=== PATIENT | male | born 1995 | race Caucasian/White ===

== ENCOUNTER 2016-09-05 09:54 | Emergency (ER) ==
[2016-09-05 10:23] LABS: URINE CULTURE PL NEEDED? NO; URINE SOURCE VOIDED
[2016-09-05 10:33] LABS: BILIRUBIN URINE NEGATIVE (NEGATIVE); BLOOD URINE NEGATIVE (NEGATIVE); CLARITY CLEAR (CLEAR); COLOR YELLOW; GLUCOSE URINE NEGATIVE (NEGATIVE); LEUKOCYTES URINE NEGATIVE (NEGATIVE); NITRITE URINE NEGATIVE (NEGATIVE); PROTEIN URINE NEGATIVE (NEGATIVE); UROBILINOGEN URINE NORMAL
[2016-09-05 10:39] LABS: MANUAL DIFF NEEDED? NO
[2016-09-05 10:40] LABS: URINE EPITHELIAL CELLS <10 /HPF (<10); URINE WBC <10 /HPF (<10)
[2016-09-05 10:49] LABS: BASO% 0.2 % (0.0-0.8); EOS# 0.05 X1000 (0.0-0.7); EOS% 0.8 % (0.0-10.0); HEMATOCRIT 46.6 % (42.0-52.0); HEMOGLOBIN 15.9 g/dL (14.0-18.0); IMM GRAN# 0.01 X1000 (0.0-0.04); IMM GRAN% 0.2 % (0.0-0.5); LYMPH# 1.52 X1000 (1.2-3.4); MCH 32.1 PG (27-31); MCHC 34.1 g/dL (33-37); MCV 94.1 FL (81-99); MONO% 7.9 % (1.7-9.3); MPV 10.3 FL (7.4-10.4); NEUT% 66.9 % (42.2-75.2); PLT 222 X1000 (130-400); RBC 4.95 XMIL (4.7-6.1)
--- NOTE | 2016-09-05 10:49 | PROVIDER DOCUMENTATION ---
HPI-Abdominal Pain/GI Problem <Reyes Paul - Last Filed: 09/05/16 11:31> - General Source: patient - History of Present Illness-ABD Abdominal Pain Onset Location: reports: [facility] Pain Radiation: reports: no radiation Quality of Pain: reports: aching Severity in ED: reports: mild Onset/Duration: reports: last night Timing: reports: still present Activities at Onset: reports: none Exposure to sick contacts?: No Modifying Factors: improves with: nothing Associated Symptoms: reports: denies symptoms Last BM: 24 hours ago Dark Stools Present?: reports: none noticed Rectal Bleeding: reports: none Rectal Pain: reports: none Emesis Description: reports: none Bruising or Bleeding Gums?: No Similar Symptoms Previously?: No Recently seen or treated by another doctor?: No <Feliciano Andre - Last Filed: 09/05/16 11:37> - General Chief Complaint: Abdominal Pain Stated Complaint: EPIGASTRIC PAIN Time Seen by Provider: 09/05/16 10:24 Allergies/Adverse Reactions: Patient Allergies Allergy/AdvReac Type Severity Reaction Status Date / Time No Known Allergies Allergy Verified 09/05/16 10:06 Home Medications: Home Medication List Medication Instructions Recorded Confirmed Last Taken Type Polyethylene Glycol 3350 [Miralax] 17 gm PO DAILY PRN PRN #[id number] 09/05/16 Unknown Rx [email or web address] Review of Systems - Adult - REVIEW OF SYSTEMS - ADULT Constitutional: denies: chills, fever, night sweats Cardiovascular: denies: chest pain, irregular heart rate, palpitations Respiratory: denies: cough, shortness of breath, wheezing Gastrointestinal: reports: abdominal pain. denies: constipation, nausea, vomiting Genitourinary: denies: dysuria, flank pain, frequent UTI's Musculoskeletal: denies: back pain, muscle aches, neck pain Integumentary: denies: hives, itching, rash All Other Systems: Reviewed and Negative <Feliciano Andre - Last Filed: 09/05/16 11:37> Past History - Adult - PAST MEDICAL HISTORY-ADULT Review of Records: reports: Old Records Reviewed, Nursing Assessment Review - PRIOR SURGERIES/PROCEDURES Surgical/Procedure History: reports: none - PRIOR HOSPITALIZATIONS Prior Hospitalizations: reports: none - IMMUNIZATION STATUS Childhood Immunizations: See Nurse Assessment Flu Vaccine: See Nurse Assessment - FAMILY HISTORY Family History: reviewed, not pertinent - SOCIAL HISTORY Smoking: denies Substance Use: none/never Living Situation: family <Feliciano Andre - Last Filed: 09/05/16 11:37> Physical Exam-General - PHYSICAL EXAM-ADULT Initial Vital Signs Reviewed: Yes - CONSTITUTIONAL General Appearance: appears well, alert, no apparent distress - RESPIRATORY Respiratory: chest non-tender, lungs clear, normal breath sounds, no pleuratic chest pain, no respiratory distress, no accessory muscle use - CARDIOVASCULAR Cardiovascular: normal peripheral pulses, regular rate, rhythm, no edema, no gallop, no JVD, no murmur - GASTROINTESTINAL (ABDOMEN) Abdominal Exam: normal bowel sounds, non tender, soft, no organomegaly, no pulsatile mass - MUSCULOSKELETAL Back Exam: normal inspection, no CVA tenderness, no vertebral tenderness Extremity: normal range of motion, non-tender, normal gait, normal inspection - SKIN Integumentary: normal color, normal turgor, warm/dry - PSYCHIATRIC Psych/Mental Status: normal mood/affect, normal thought content, normal thought process, oriented x 3 <Feliciano Andre - Last Filed: 09/05/16 11:37> Progress - PLAN OF CARE/RESULTS Progress/Plan/Lab Results: Laboratory Results - last 24 hr 09/05/16 09/05/16 09/05/16 10:10 10:32 10:32 WBC 6.34 RBC 4.95 Hgb 15.9 Hct 46.6 MCV 94.1 MCH 32.1 H MCHC 34.1 RDW Std Deviation 12.6 Plt Count 222 MPV 10.3 Immature Gran % (Auto) 0.2 Neut % (Auto) 66.9 Lymph % (Auto) 24.0 [place] % (Auto) 7.9 Eos % (Auto) 0.8 Baso % (Auto) 0.2 Immature Gran # (Auto) 0.01 Neut # (Auto) 4.25 Lymph # (Auto) 1.52 [place] # (Auto) 0.50 Eos # (Auto) 0.05 Baso # (Auto) 0.01 Sodium 136 Potassium 3.8 Chloride 103 Carbon Dioxide 25 Anion Gap 8 BUN 16 Creatinine 1.0 Estimated GFR/1.73 m2 > 60 BUN/Creatinine Ratio 16 Glucose 85 Calculated Osmolality 272 Calcium 8.8 Total Bilirubin 0.40 AST 35 H ALT 32 Alkaline Phosphatase 97 Total Protein 6.2 L Albumin 4.3 Globulin 2.0 Albumin/Globulin Ratio 2.0 Amylase 36 Lipase 15 Urine Source VOIDED Urine Color YELLOW Urine Clarity CLEAR Urine pH 6.0 Ur Specific [place] 1.020 Urine Protein NEGATIVE Urine Ketones TRACE Urine Blood NEGATIVE Urine Nitrite NEGATIVE Urine Bilirubin NEGATIVE Urine Urobilinogen NORMAL Urine Microscopic RBC Not Reportable Urine WBC NEGATIVE Urine Microscopic WBC <10 Ur Epithelial Cells <10 Urine Glucose NEGATIVE - XRAY 1 XRAY Study: Abdomen XRAY Interpretation: CONSTIPATION <Feliciano Andre - Last Filed: 09/05/16 11:37> Departure - Departure Time of Disposition Order: 11:31 Certified Medical Emergency: Emergent <Reyes Paul - Last Filed: 09/05/16 11:31> <Feliciano Andre - Last Filed: 09/05/16 11:37> - Departure DIAGNOSIS: Constipation Qualifiers: Constipation type: unspecified constipation type Qualified Code(s): K59.00 - Constipation, unspecified Disposition: HOME 01 Condition: Stable Additional Instructions: after magnesium citrate, take miralax daily for 2 months ED Follow Up Instructions: You have been treated by a care provider in the Emergency Department. These instructions are being provided to you so you can have an understanding of how to care for yourself upon discharge. Upon discharge from the Emergency Department, you are responsible for making arrangements for follow-up care by a physician of your choice. Take all prescribed medications as directed. Return to the Emergency Department immediately for any new or worsening symptoms. You may call the Physician Referral phone number at [phone] to obtain a list of Physicians who are taking new patients. Prescriptions: Polyethylene Glycol 3350 [Miralax] 17 gm PO DAILY PRN PRN #60 [email or web address] PRN Reason: Constipation Referrals: None,PCP [Primary Care Provider] - Physician Attestation
[2016-09-05 11:02] LABS: AGAP 8; ALBUMIN 4.3 g/dL (3.5-5.0); ALKALINE PHOSPHATASE 97 U/L (32-122); AMYLASE 36 U/L (20-200); BUN 16 mg/dL (8-22); CALCIUM 8.8 mg/dL (8.8-10.2); CHLORIDE 103 mmol/L (98-107); COSMO 272; GOT 35 U/L (10-34); GPT 32 U/L (10-44); LIPASE 15 U/L (13-60); POTASSIUM 3.8 mmol/L (3.5-5.1); SODIUM 136 mmol/L (136-145); TCO2 25 mmol/L (25-35); TOTAL PROTEIN 6.2 g/dL (6.3-8.3)
--- NOTE | 2016-09-05 11:24 | Diag Imaging Result Document ---
PROCEDURE NAME: ABDOMEN FLAT/UPRIGHT - 09/05/2016 FLAT AND UPRIGHT, TWO VIEWS: FINDINGS: No free air beneath the diaphragm. There is stool throughout the colon. The bowel loops are not dilated. No organomegaly. No abnormal abdominal or pelvic calcifications. No foreign body. IMPRESSION: Constipation.
[2016-09-05] MEDS ORDERED: CITRATE OF MAGNESIA PO ONE (11:31)
[2016-09-05 11:51] VITALS: BP 125/59
== END 2016-09-05 11:53 | disposition home or self-care (01) ==
LOC: P.ED 09:54
DX: K59.00 Constipation, unspecified (principal); R10.12 Left upper quadrant pain; R10.13 Epigastric pain
CPT/HCPCS: 36415; 74020; 80053; 81001; 82150; 83690; 85025